=== PATIENT | male | born 1980 | race Caucasian/White ===

== ENCOUNTER 2018-09-12 12:17 | Inpatient (IN) ==
[2018-09-12 14:30] LABS: Basophils % 0.3 %; Eosinophils # 0.2 K/mcL (0.0-0.6); Eosinophils % 1.4 %; Hematocrit 46.1 % (37.5-50.1); Hemoglobin 14.4 g/dL (12.9-16.9); Lymphocytes # 2.7 K/mcL (0.6-4.6); Lymphocytes % 23.2 %; Mean Corpuscular HGB Conc 31.2 g/dL (31.6-35.5); Mean Corpuscular Hemoglobin 25.2 pg (28.0-33.3); Mean Corpuscular Volume 80.7 fL (83.0-100.0); Mean Platelet Volume 9.6 fL (9.4-12.4); Monocytes # 1.1 K/mcL (0.0-1.3); Monocytes % 9.4 %; Neutrophils # 7.5 K/mcL (1.6-8.9); Platelet Count 190 K/mcL (140-400); Red Blood Count 5.71 M/mcL (4.19-5.50); Red Cell Distribution Width 17.2 % (11.5-14.5); Segmented Neutrophils % 64.7 %
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
[2018-09-12 15:10] LABS: BUN/Creatinine Ratio 19 (6-26); Blood Urea Nitrogen 13 mg/dL (6-20); C-Reactive Protein 38 mg/L (Less than 10); Calcium 9.2 mg/dL (8.6-10.3); Carbon Dioxide 29 mEq/L (23-29); Chloride 103 mEq/L (98-107); Glucose 100 mg/dL (70-105); Osmolality,Calculated 288 (280-300); Potassium 4.3 mEq/L (3.5-5.1); Sodium 139 mEq/L (136-145); eGFR For Non-African Americans > 60 (> 60)
[2018-09-12] MEDS ORDERED: Piperacillin/Tazobactam 3.375 GM in 0.9 % Sodium Chloride Mini Bag 100 ML IVPB ONE (15:10)
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
[2018-09-12] MEDS ORDERED: Acetaminophen 325 MG TABLET PO PRN (16:18)
[2018-09-12] MEDS ORDERED: *HR* OxyCODONE Immed Rel 5 MG TABLET PO PRN (16:18)
[2018-09-12] MEDS ORDERED: Naloxone 0.4 MG/ML INJ IVP PRN (16:18)
[2018-09-12] MEDS ORDERED: Dextrose Gel 15 GM/37.5 ML TUBE PO PRN ×2 (16:20)
[2018-09-12] MEDS ORDERED: D5% in Water 1,000 ML IVC PRN (16:20)
[2018-09-12] MEDS ORDERED: *HR* Dextrose 50 % in Water (Syg) 50 ML SYRINGE IVP PRN (16:20)
[2018-09-12 16:39] LABS: Estimated Average Glucose 146 mg/dl; Hemoglobin A1C 6.7 %
[2018-09-12] MEDS ORDERED: Vancomycin 1 EACH in 0.9 % Sodium Chloride 250 ML IVPB SCH (17:00)
[2018-09-12] MEDS: Insulin LISPRO 300 UNITS/3 ML VIAL SQ SCH ×2 (17:18→20:12)
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
[2018-09-12] MEDS: Piperacillin/Tazobactam 3.375 GM in 0.9 % Sodium Chloride Mini Bag 100 ML IVPB SCH (23:45)
[2018-09-12] MEDS: traMADol 50 MG TABLET PO PRN (23:54)
[2018-09-13] MEDS: *HR* Enoxaparin 40 MG/0.4 ML SYRINGE SQ SCH (05:05)
[2018-09-13 05:53] LABS: Hematocrit 44.4 % (37.5-50.1); Hemoglobin 13.8 g/dL (12.9-16.9); Mean Corpuscular HGB Conc 31.1 g/dL (31.6-35.5); Mean Corpuscular Hemoglobin 25.2 pg (28.0-33.3); Mean Platelet Volume 9.9 fL (9.4-12.4); Platelet Count 169 K/mcL (140-400); Red Blood Count 5.48 M/mcL (4.19-5.50); Red Cell Distribution Width 17.9 % (11.5-14.5)
[2018-09-13 06:10] LABS: BUN/Creatinine Ratio 16 (6-26); Blood Urea Nitrogen 12 mg/dL (6-20); Calcium 8.8 mg/dL (8.6-10.3); Carbon Dioxide 30 mEq/L (23-29); Chloride 104 mEq/L (98-107); Glucose 110 mg/dL (70-105); Osmolality,Calculated 286 (280-300); Potassium 4.2 mEq/L (3.5-5.1); Sodium 138 mEq/L (136-145); eGFR For Non-African Americans > 60 (> 60)
[2018-09-13] MEDS: Insulin LISPRO 300 UNITS/3 ML VIAL SQ SCH ×4 (07:58→21:45)
[2018-09-13] MEDS: Lisinopril-HCTZ 20-12.5mg TABLET PO SCH (08:12)
[2018-09-13] MEDS: Piperacillin/Tazobactam 3.375 GM in 0.9 % Sodium Chloride Mini Bag 100 ML IVPB SCH ×2 (08:14→17:20)
--- NOTE | 2018-09-13 10:11 | Internal Med Progress Note ---
<Frandy Loyola - Last Filed: 09/13/18 15:46> Hospitalist Progress Note - Encounter Date of Encounter: 09/13/18 Time of Encounter: 11:00 - Subjective Interval History: Patient examined at the bedside. No acute distress. Continues to be in IV vancomycin and Zosyn for his left leg cellulitis. The left leg has splint with no evidence of exudates. He endorses the wound looks better than yesterday. Denies any numbness or tingling to his extremities. He is scheduled for surgery of his tibial plafond in the beginning of next week. - Exam Vitals: Temp Pulse Resp BP Pulse Ox 97.6 F 80 19 144/80 97 09/13/18 07:32 09/13/18 07:32 09/13/18 07:32 09/13/18 07:32 09/13/18 07:32 Exam: Gen: no acute distress, A&O*3 Heart:RRR, no gallops, murmurs or rubs lungs: To auscultation bilaterally, no rales, wheezing or rhonchi MS: neurovascularly intact, pulses could not be appreciaetd becasue of the splint, ROM WNL, no evidence of compartment syndrome - Assessment and Plan (1) Cellulitis Current Visit: Yes Status: Acute Assessment and Plan: - likely due to allergy to some chemical in the splint on his leg for his cellulitis, or due to weak perfusion secondary to pre-diabetes. Was seen in podiatry clinic at the [facility] 09/03 right with the tibial plafond fracture. Patient currently prediabetic with A1c : 6.7 - on Physical Exam the wound looks warm to touch with no exudates. The color looks better than yesterday. Patient is neurovascularly intact, with no evidence of any compartment syndrome. Requires close monitoring because of his recent fracture - Currently on IV Vanc and Zosyn. - (2) Fracture of tibial plafond Current Visit: Yes Status: Acute Assessment and Plan: - Was diagnosed with the tibial plafond fracture because of fall through the deck on 10:30. - He was placed in a splint at the [facility]. - Scheduled for surgery later this week once the cellulitis infection better,no evidence of any compartment syndrome. (3) Hypertension Current Visit: Yes Status: Chronic Assessment and Plan: - Has a history of hypertension. -We will resume his home Zestoretic and follow blood pressures. Currently BP 135/80 (4) Diabetes Current Visit: Yes Status: Chronic Assessment and Plan: - Patient has a history of borderline diabetes. His A1c was 6.7 on admission. So blood sugar was in 300s when he was admitted but he endorses that he had a meal before he came - On the low-dose sliding scale insulin, most recent glucoses 110. (5) Morbid obesity with BMI of 70 and over, adult Current Visit: Yes Status: Chronic Assessment and Plan: Chronic issue - Time Spent with Patient Total time spent is greater than 50% in coordination of care (as documented) at patient's floor/unit and/or counseling patient: Internal Medicine: Result - Labs CBC & Chem 7: 09/13/18 05:37 09/13/18 05:37 Labs: Short CBC 09/12/18 09/13/18 Range/Units 14:11 05:37 WBC 11.5 H 8.4 (4.3-11.1) K/mcL Hgb 14.4 13.8 (12.9-16.9) g/dL Hct 46.1 44.4 (37.5-50.1) % Plt Count 190 169 (140-400) K/mcL Neutrophils # 7.5 (1.6-8.9) K/mcL BMP 09/12/18 09/13/18 14:11 05:37 Sodium 139 138 Potassium 4.3 4.2 Chloride 103 104 Carbon Dioxide 29 30 H BUN 13 12 Creatinine 0.68 L 0.75 Glucose 100 110 H Calcium 9.2 8.8 Consult Discharge Plan - Plan Referrals: Trevor Ortega, DPM [Partnered Physician] - NONE,PCP [Non-Partnered Physician] - <Haim Frank - Last Filed: 09/13/18 16:10> Hospitalist Progress Note - Encounter Date of Encounter: 09/13/18 - Exam Vitals: Temp Pulse Resp BP Pulse Ox 97.6 F 84 18 157/83 93 09/13/18 15:50 09/13/18 15:50 09/13/18 15:50 09/13/18 15:50 09/13/18 15:50 - Assessment and Plan (1) Cellulitis Current Visit: Yes Status: Acute (2) Fracture of tibial plafond Current Visit: Yes Status: Acute (3) Hypertension Current Visit: Yes Status: Chronic (4) Diabetes Current Visit: Yes Status: Chronic (5) Morbid obesity with BMI of 70 and over, adult Current Visit: Yes Status: Chronic (6) BJORN (obstructive sleep apnea) Current Visit: Yes Status: Chronic Assessment and Plan: Pt states he is to wear bipap at home but does not. - Time Spent with Patient Total time spent is greater than 50% in coordination of care (as documented) at patient's floor/unit and/or counseling patient: Internal Medicine: Result - Labs CBC & Chem 7: 09/13/18 05:37 09/13/18 05:37 Labs: Short CBC 09/13/18 Range/Units 05:37 WBC 8.4 (4.3-11.1) K/mcL Hgb 13.8 (12.9-16.9) g/dL Hct 44.4 (37.5-50.1) % Plt Count 169 (140-400) K/mcL BMP 09/13/18 05:37 Sodium 138 Potassium 4.2 Chloride 104 Carbon Dioxide 30 H BUN 12 Creatinine 0.75 Glucose 110 H Calcium 8.8 - Attending Attestation I examined this patient and my medical decision-making was reviewed with the Resident Physician on 09/13/18. I agree with the documented findings, disposition and treatment plan as described except to the extent set forth below. Mr Rosa is currently admitted for acute cellulitis and fracture of L ankle. He remains moderate to high risk due to potential for worsening clinical status. Mr Rosa is feeling OK. He thinks his foot is better. No fever or chills. No CP or SOB. He is feeling bored. Exam alert Comfortable Mucus membranes dry Heart distant Lungs diminished Abd soft Appears to be less swelling I/P 1. Cellulitis LLE - continue IV abx and monitoring 2. Fracture - per podiatry Further diagnoses and plan as above. <Frandy Loyola - Last Filed: 09/13/18 15:46> (1) Cellulitis Qualifiers: Site of cellulitis: extremity Site of cellulitis of extremity: lower extremity Laterality: left Qualified Code(s): L03.116 - Cellulitis of left lower limb (3) Hypertension Qualifiers: Hypertension type: essential hypertension Qualified Code(s): I10 - Essential (primary) hypertension (4) Diabetes Qualifiers: Diabetes mellitus type: type 2 Diabetes mellitus ferry terminal agent insulin use: without ferry terminal agent use Diabetes mellitus complication status: with hyperglycemia Qualified Code(s): E11.65 - Type 2 diabetes mellitus with hyperglycemia <Haim Frank - Last Filed: 09/13/18 16:10> (1) Cellulitis Qualifiers: Site of cellulitis: extremity Site of cellulitis of extremity: lower extremity Laterality: left Qualified Code(s): L03.116 - Cellulitis of left lower limb (3) Hypertension Qualifiers: Hypertension type: essential hypertension Qualified Code(s): I10 - Essential (primary) hypertension (4) Diabetes Qualifiers: Diabetes mellitus type: type 2 Diabetes mellitus mcfp insulin use: without ferry terminal agent use Diabetes mellitus complication status: with hyperglycemia Qualified Code(s): E11.65 - Type 2 diabetes mellitus with hyperglycemia
[2018-09-13] MEDS: traMADol 50 MG TABLET PO PRN (19:30)
[2018-09-14] MEDS: Piperacillin/Tazobactam 3.375 GM in 0.9 % Sodium Chloride Mini Bag 100 ML IVPB SCH ×3 (00:18→16:55)
[2018-09-14 04:41] LABS: Basophils % 0.3 %; Eosinophils # 0.2 K/mcL (0.0-0.6); Eosinophils % 2.2 %; Hemoglobin 13.9 g/dL (12.9-16.9); Immature Granulocytes % 0.8 % (0-4); Lymphocytes # 1.9 K/mcL (0.6-4.6); Lymphocytes % 19.6 %; Mean Corpuscular HGB Conc 30.9 g/dL (31.6-35.5); Mean Corpuscular Hemoglobin 24.9 pg (28.0-33.3); Mean Corpuscular Volume 80.5 fL (83.0-100.0); Mean Platelet Volume 9.8 fL (9.4-12.4); Monocytes # 0.8 K/mcL (0.0-1.3); Monocytes % 7.7 %; Neutrophils # 6.8 K/mcL (1.6-8.9); Platelet Count 190 K/mcL (140-400); Red Blood Count 5.59 M/mcL (4.19-5.50); Red Cell Distribution Width 16.9 % (11.5-14.5); Segmented Neutrophils % 69.4 %
[2018-09-14 05:01] LABS: BUN/Creatinine Ratio 14 (6-26); Blood Urea Nitrogen 11 mg/dL (6-20); Calcium 8.9 mg/dL (8.6-10.3); Carbon Dioxide 30 mEq/L (23-29); Chloride 103 mEq/L (98-107); Glucose 113 mg/dL (70-105); Osmolality,Calculated 286 (280-300); Potassium 4.1 mEq/L (3.5-5.1); Sodium 138 mEq/L (136-145); eGFR For Non-African Americans > 60 (> 60)
[2018-09-14] MEDS: *HR* Enoxaparin 40 MG/0.4 ML SYRINGE SQ SCH (05:10)
[2018-09-14] MEDS ORDERED: Vancomycin 500 MG in 0.9 % Sodium Chloride Mini Bag 100 ML IVPB ONE (08:00)
[2018-09-14] MEDS: Insulin LISPRO 300 UNITS/3 ML VIAL SQ SCH ×4 (08:04→19:52)
[2018-09-14] MEDS: Lisinopril-HCTZ 20-12.5mg TABLET PO SCH (08:27)
--- NOTE | 2018-09-14 08:34 | Internal Med Progress Note ---
<Haim Frank - Last Filed: 09/14/18 18:34> Hospitalist Progress Note - Encounter Date of Encounter: 09/14/18 - Exam Vitals: Temp Pulse Resp BP Pulse Ox 97.3 F L 99 18 154/91 94 09/14/18 16:33 09/14/18 16:33 09/14/18 16:33 09/14/18 16:33 09/14/18 16:33 - Assessment and Plan (1) Cellulitis Current Visit: Yes Status: Acute (2) Fracture of tibial plafond Current Visit: Yes Status: Acute (3) Hypertension Current Visit: Yes Status: Chronic (4) Diabetes Current Visit: Yes Status: Chronic (5) Morbid obesity with BMI of 70 and over, adult Current Visit: Yes Status: Chronic (6) BJORN (obstructive sleep apnea) Current Visit: Yes Status: Chronic - Time Spent with Patient Total time spent is greater than 50% in coordination of care (as documented) at patient's floor/unit and/or counseling patient: Internal Medicine: Result - Labs CBC & Chem 7: 09/14/18 04:31 09/14/18 04:31 Labs: Short CBC 09/14/18 Range/Units 04:31 WBC 9.8 (4.3-11.1) K/mcL Hgb 13.9 (12.9-16.9) g/dL Hct 45.0 (37.5-50.1) % Plt Count 190 (140-400) K/mcL Neutrophils # 6.8 (1.6-8.9) K/mcL BMP 09/14/18 04:31 Sodium 138 Potassium 4.1 Chloride 103 Carbon Dioxide 30 H BUN 11 Creatinine 0.76 Glucose 113 H Calcium 8.9 Consult Discharge Plan - Plan Referrals: Trevor Ortega, DPM [Partnered Physician] - NONE,PCP [Non-Partnered Physician] - - Attending Attestation I examined this patient and my medical decision-making was reviewed with the Resident Physician on 09/14/18. I agree with the documented findings, disposition and treatment plan as described except to the extent set forth below. Mr Rosa is currently admitted for fracture and cellulitis of L ankle. He remains moderate to high risk due to potential for worsening clinical status. Mr Rosa is resting at this time. No fever or chills. Thinks foot is improving. No GI issues. No CP or SOB. Exam alert comfortable Mucus membranes dry Heart reg No wheeze abd soft I/P 1. Cellulitis - continue abx 2. Fracture per podiatry Further diagnoses and plan as above. <Loyola,Frandy - Last Filed: 09/14/18 19:05> Hospitalist Progress Note - Encounter Date of Encounter: 09/14/18 Time of Encounter: 08:30 - Subjective Interval History: 09/14 No acute events overnight. Endorses no acute distress so continues to be on IV vancomycin and Zosyn for his left leg cellulitis. No evidence of tingling or numbness in the lower extremities. No physical signs of any compartment syndrome. He is scheduled for surgery of his tibial plafond in the beginning of next week. 09/13 Patient examined at the bedside. No acute distress. Continues to be in IV vancomycin and Zosyn for his left leg cellulitis. The left leg has splint with no evidence of exudates. He endorses the wound looks better than yesterday. Denies any numbness or tingling to his extremities. He is scheduled for surgery of his tibial plafond in the beginning of next week. - Exam Vitals: Temp Pulse Resp BP Pulse Ox 97.7 F 84 20 143/81 94 09/14/18 07:35 09/14/18 07:35 09/14/18 07:35 09/14/18 07:35 09/14/18 07:35 Exam: Gen: no acute distress, A&O*3 Heart:RRR, no gallops, murmurs or rubs lungs: Clear to auscultation bilaterally, no rales, wheezing or rhonchi MS: neurovascularly intact, pulses could not be appreciated because of the splint, ROM WNL, no evidence of compartment syndrome - Assessment and Plan (1) Cellulitis Current Visit: Yes Status: Acute Assessment and Plan: - likely due to allergy to some chemical in the splint on his leg for his cellulitis, or due to weak perfusion secondary to pre-diabetes. Was seen in podiatry clinic at the [facility] 09/03 right with the tibial plafond fracture. Patient currently prediabetic with A1c : 6.7 - on Physical Exam the wound looks warm to touch with no exudates. The color looks better than yesterday. Patient is neurovascularly intact, with no evidence of any compartment syndrome. Requires close monitoring because of his recent fracture - Currently on day 3 of IV Vanc and Zosyn. - (2) Fracture of tibial plafond Current Visit: Yes Status: Acute Assessment and Plan: - Was diagnosed with the tibial plafond fracture because of fall through the deck on 10:30. - He was placed in a splint at the [facility]. - Scheduled for surgery later this week once the cellulitis infection better,no evidence of any compartment syndrome. (3) Hypertension Current Visit: Yes Status: Chronic Assessment and Plan: - Has a history of hypertension. -We will resume his home Zestoretic and follow blood pressures. Currently BP 154/91 (4) Diabetes Current Visit: Yes Status: Chronic Assessment and Plan: - Patient has a history of borderline diabetes. His A1c was 6.7 on admission. So blood sugar was in 300s when he was admitted but he endorses that he had a meal before he came - On the low-dose sliding scale insulin, most recent glucoses 113. (5) Morbid obesity with BMI of 70 and over, adult Current Visit: Yes Status: Chronic Assessment and Plan: Chronic issue (6) BJORN (obstructive sleep apnea) Current Visit: Yes Status: Chronic Assessment and Plan: Pt states he is to wear bipap at home but does not. - Time Spent with Patient Total time spent is greater than 50% in coordination of care (as documented) at patient's floor/unit and/or counseling patient: Internal Medicine: Result - Labs CBC & Chem 7: 09/14/18 04:31 09/14/18 04:31 Labs: Short CBC 09/14/18 Range/Units 04:31 WBC 9.8 (4.3-11.1) K/mcL Hgb 13.9 (12.9-16.9) g/dL Hct 45.0 (37.5-50.1) % Plt Count 190 (140-400) K/mcL Neutrophils # 6.8 (1.6-8.9) K/mcL BMP 09/14/18 04:31 Sodium 138 Potassium 4.1 Chloride 103 Carbon Dioxide 30 H BUN 11 Creatinine 0.76 Glucose 113 H Calcium 8.9 <Haim Frank - Last Filed: 09/14/18 18:34> (1) Cellulitis Qualifiers: Site of cellulitis: extremity Site of cellulitis of extremity: lower extremity Laterality: left Qualified Code(s): L03.116 - Cellulitis of left lower limb (3) Hypertension Qualifiers: Hypertension type: essential hypertension Qualified Code(s): I10 - Essential (primary) hypertension (4) Diabetes Qualifiers: Diabetes mellitus type: type 2 Diabetes mellitus fpc insulin use: without superintendent marine oil terminal use Diabetes mellitus complication status: with hyperglycemia Qualified Code(s): E11.65 - Type 2 diabetes mellitus with hyperglycemia <Frandy Loyola - Last Filed: 09/14/18 19:05> (1) Cellulitis Qualifiers: Site of cellulitis: extremity Site of cellulitis of extremity: lower extremity Laterality: left Qualified Code(s): L03.116 - Cellulitis of left lower limb (3) Hypertension Qualifiers: Hypertension type: essential hypertension Qualified Code(s): I10 - Essential (primary) hypertension (4) Diabetes Qualifiers: Diabetes mellitus type: type 2 Diabetes mellitus superintendent marine oil terminal insulin use: without superintendent marine oil terminal use Diabetes mellitus complication status: with hyperglycemia Qualified Code(s): E11.65 - Type 2 diabetes mellitus with hyperglycemia
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
[2018-09-15] MEDS: Piperacillin/Tazobactam 3.375 GM in 0.9 % Sodium Chloride Mini Bag 100 ML IVPB SCH ×3 (00:45→16:13)
[2018-09-15] MEDS: traMADol 50 MG TABLET PO PRN (04:02)
[2018-09-15] MEDS: *HR* Enoxaparin 40 MG/0.4 ML SYRINGE SQ SCH (04:54)
[2018-09-15 06:20] LABS: Basophils % 0.4 %; Eosinophils # 0.2 K/mcL (0.0-0.6); Eosinophils % 2.2 %; Hematocrit 44.9 % (37.5-50.1); Hemoglobin 13.9 g/dL (12.9-16.9); Immature Granulocytes % 0.6 % (0-4); Lymphocytes # 2.7 K/mcL (0.6-4.6); Lymphocytes % 27.4 %; Mean Corpuscular Volume 80.6 fL (83.0-100.0); Mean Platelet Volume 9.5 fL (9.4-12.4); Monocytes # 0.9 K/mcL (0.0-1.3); Monocytes % 8.8 %; Neutrophils # 6.1 K/mcL (1.6-8.9); Platelet Count 192 K/mcL (140-400); Red Blood Count 5.57 M/mcL (4.19-5.50); Red Cell Distribution Width 17.3 % (11.5-14.5); Segmented Neutrophils % 60.6 %
[2018-09-15 06:38] LABS: BUN/Creatinine Ratio 17 (6-26); Blood Urea Nitrogen 13 mg/dL (6-20); Calcium 9.3 mg/dL (8.6-10.3); Carbon Dioxide 28 mEq/L (23-29); Chloride 104 mEq/L (98-107); Glucose 110 mg/dL (70-105); Osmolality,Calculated 289 (280-300); Potassium 4.1 mEq/L (3.5-5.1); Sodium 139 mEq/L (136-145); eGFR For Non-African Americans > 60 (> 60)
[2018-09-15] MEDS: Insulin LISPRO 300 UNITS/3 ML VIAL SQ SCH ×4 (08:07→20:38)
[2018-09-15] MEDS: Lisinopril-HCTZ 20-12.5mg TABLET PO SCH (09:10)
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
[2018-09-16] MEDS: Piperacillin/Tazobactam 3.375 GM in 0.9 % Sodium Chloride Mini Bag 100 ML IVPB SCH ×3 (00:10→16:10)
[2018-09-16] MEDS: *HR* Enoxaparin 40 MG/0.4 ML SYRINGE SQ SCH (05:35)
[2018-09-16] MEDS: Insulin LISPRO 300 UNITS/3 ML VIAL SQ SCH ×4 (07:48→22:33)
[2018-09-16] MEDS: Lisinopril-HCTZ 20-12.5mg TABLET PO SCH (08:31)
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
[2018-09-16] MEDS ORDERED: Lidocaine 1% 20 ML MDV ONE (14:30)
[2018-09-16] MEDS ORDERED: Lidocaine -MPF 2% 2 ML VIAL ONE (14:31)
[2018-09-16] MEDS ORDERED: Ondansetron 4 MG/2 ML VIAL ONE (14:31)
[2018-09-16] MEDS ORDERED: *HR* FentaNYL (PF) 100 MCG/2 ML VIAL ONE ×3 (14:31→15:50)
[2018-09-16] MEDS ORDERED: *HR* Propofol 200 MG/20 ML VIAL IVP ONE (14:31)
[2018-09-16] MEDS ORDERED: Dexamethasone 4 MG/ML VIAL ONE (14:31)
[2018-09-16] MEDS ORDERED: *HR* Rocuronium Bromide 50 MG/5 ML VIAL ONE (15:04)
[2018-09-16] MEDS ORDERED: *HR* Promethazine 25 MG/ML VIAL IVP PRN ×2 (15:32→19:32)
[2018-09-16] MEDS ORDERED: Ondansetron 4 MG/2 ML VIAL IVP ONE ×2 (15:32→19:32)
[2018-09-16] MEDS ORDERED: *HR* Labetalol 20 MG/4 ML SYRINGE IVP PRN ×2 (15:32→19:32)
[2018-09-16] MEDS ORDERED: *HR* OxyCODONE/APAP 5/325 TABLET PO PRN ×2 (15:32→19:32)
[2018-09-16] MEDS ORDERED: *HR* Succinylcholine 200 MG/10 ML VIAL IVP ONE (15:42)
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
[2018-09-16] MEDS: *HR* HYDROmorphone (PF) 1 MG/ML SYRINGE IVP PRN ×2 (18:17→18:22)
--- NOTE | 2018-09-16 18:39 | Anesthesia Evaluation Post Op ---
Date of Encounter: 09/16/18 Time of Encounter: 18:39 - Vital Signs Vital Signs: Vital Signs/O2 Sat, Most Current Temp Pulse Resp BP Pulse Ox 97.9 F 93 24 143/92 92 09/16/18 18:11 09/16/18 18:26 09/16/18 18:26 09/16/18 18:26 09/16/18 18:26 - Lungs Lungs: Clear Ascult./Percussion - Airway Airway: Non-obstructed - Cardiovascular Regular Rate - Mental Status Mental Status: Alert & Oriented, Answers Appropriately - Pain Pain Scale: 0 Pain Scale used: Numeric (1 - 10) - Nausea Vomiting Nausea Vomiting: Not Present - Hydration Hydration: Tolerates oral liquids, Has not voided - Discharge PostOp Status: Transfer Patient to floor
[2018-09-16] MEDS ORDERED: Naloxone 0.4 MG/ML INJ IVP PRN (19:32)
[2018-09-16] MEDS ORDERED: Dextrose Gel 15 GM/37.5 ML TUBE PO PRN ×2 (19:32)
[2018-09-16] MEDS ORDERED: *HR* Dextrose 50 % in Water (Syg) 50 ML SYRINGE IVP PRN (19:32)
[2018-09-16] MEDS ORDERED: traMADol 50 MG TABLET PO PRN (19:32)
[2018-09-16] MEDS ORDERED: Acetaminophen 325 MG TABLET PO PRN (19:32)
[2018-09-16] MEDS ORDERED: D5% in Water 1,000 ML IVC PRN (19:32)
[2018-09-16] MEDS ORDERED: *HR* HYDROmorphone (PF) 1 MG/ML SYRINGE IVP PRN (19:32)
[2018-09-17] MEDS: Piperacillin/Tazobactam 3.375 GM in 0.9 % Sodium Chloride Mini Bag 100 ML IVPB SCH ×3 (01:16→16:45)
[2018-09-17] MEDS: *HR* Enoxaparin 40 MG/0.4 ML SYRINGE SQ SCH (06:02)
[2018-09-17] MEDS: Insulin LISPRO 300 UNITS/3 ML VIAL SQ SCH ×4 (07:30→20:59)
[2018-09-17 08:14] LABS: Basophils % 0.2 %; Eosinophils % 0.1 %; Hematocrit 46.4 % (37.5-50.1); Hemoglobin 14.2 g/dL (12.9-16.9); Immature Granulocytes % 0.8 % (0-4); Lymphocytes # 1.9 K/mcL (0.6-4.6); Lymphocytes % 15.6 %; Mean Corpuscular HGB Conc 30.6 g/dL (31.6-35.5); Mean Corpuscular Hemoglobin 25.2 pg (28.0-33.3); Mean Corpuscular Volume 82.3 fL (83.0-100.0); Mean Platelet Volume 9.6 fL (9.4-12.4); Monocytes % 8.3 %; Neutrophils # 9.1 K/mcL (1.6-8.9); Platelet Count 214 K/mcL (140-400); Red Blood Count 5.64 M/mcL (4.19-5.50); Red Cell Distribution Width 17.4 % (11.5-14.5)
[2018-09-17] MEDS: Lisinopril-HCTZ 20-12.5mg TABLET PO SCH (08:59)
[2018-09-17] MEDS: *HR* OxyCODONE Immed Rel 5 MG TABLET PO PRN ×2 (09:01→15:41)
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
[2018-09-17] MEDS: cephALEXin 500 MG CAPSULE PO SCH (20:59)
[2018-09-18] MEDS: *HR* OxyCODONE Immed Rel 5 MG TABLET PO PRN ×2 (01:28→20:56)
[2018-09-18 04:13] LABS: Basophils # 0.1 K/mcL (0.0-0.2); Basophils % 0.5 %; Eosinophils # 0.1 K/mcL (0.0-0.6); Eosinophils % 1.3 %; Hematocrit 45.3 % (37.5-50.1); Hemoglobin 13.6 g/dL (12.9-16.9); Immature Granulocytes % 0.4 % (0-4); Lymphocytes # 2.4 K/mcL (0.6-4.6); Lymphocytes % 23.5 %; Mean Corpuscular Hemoglobin 24.9 pg (28.0-33.3); Mean Platelet Volume 9.8 fL (9.4-12.4); Monocytes # 1.1 K/mcL (0.0-1.3); Monocytes % 10.7 %; Neutrophils # 6.6 K/mcL (1.6-8.9); Platelet Count 182 K/mcL (140-400); Red Blood Count 5.46 M/mcL (4.19-5.50); Red Cell Distribution Width 17.7 % (11.5-14.5); Segmented Neutrophils % 63.6 %
[2018-09-18 04:31] LABS: eGFR For Non-African Americans > 60 (> 60)
[2018-09-18 04:32] LABS: BUN/Creatinine Ratio 15 (6-26); Blood Urea Nitrogen 15 mg/dL (6-20); Calcium 8.9 mg/dL (8.6-10.3); Carbon Dioxide 33 mEq/L (23-29); Chloride 103 mEq/L (98-107); Glucose 115 mg/dL (70-105); Osmolality,Calculated 292 (280-300); Potassium 4.3 mEq/L (3.5-5.1); Sodium 140 mEq/L (136-145); eGFR For Non-African Americans > 60 (> 60)
[2018-09-18] MEDS: *HR* Enoxaparin 40 MG/0.4 ML SYRINGE SQ SCH (06:03)
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
[2018-09-18] MEDS: Insulin LISPRO 300 UNITS/3 ML VIAL SQ SCH ×5 (08:32→22:28)
[2018-09-18] MEDS: Lisinopril-HCTZ 20-12.5mg TABLET PO SCH (09:12)
[2018-09-18] MEDS: cephALEXin 500 MG CAPSULE PO SCH ×4 (09:12→22:18)
--- NOTE | 2018-09-18 14:11 | Podiatry Progress Note ---
Date of Encounter: 09/19/18 Time of Encounter: 14:00 - Assessment and Plan (1) Cellulitis Current Visit: Yes Status: Acute Does not appear to be worsening post operatively with IV ATB. No redness above or below splint. Will re-assess Saturday with dressing change. Qualifiers: Site of cellulitis: extremity Site of cellulitis of extremity: lower extremity Laterality: left Qualified Code(s): L03.116 - Cellulitis of left lower limb (2) Fracture of tibial plafond Current Visit: Yes Status: Acute Patient with open reduction with internal fixation tibial plafond fracture, left ankle, on 09/16/17. Toes to left foot warm to touch, CFT <3 seconds, no calf pain. No redness or streaking above or below splint. No strikethrough noted. Splint in place. Patient to remain NWB of LLE. Do not get dressing wet. Patient on IV ATB, currently being managed by primary team. X-ray ordered for AM. Recommend -Can D/C home on oral ATB after AM dressing change and Xray -Follow up outpatient with Dr. Sauceda 1 week post discharge. Subjective Principal diagnosis: Left ankle fracture Interval history: Patient awake in bed. Denies any overnight complications. Alert and oriented x 3. Reports pain to LLE. Reports he believes the splint is causing him pain to the back of the leg. Denies calf pain otherwise. Denies fevers, nausea, vomiting, diarrhea, and chills. student services director and physician at bedside. No other complaints/concerns at this time. Objective - Vital Signs Vital Signs: Vital Signs Temp Pulse Resp BP Pulse Ox 09/18/18 10:46 98.8 F 87 16 174/79 97 09/18/18 06:58 98 F 79 16 157/74 98 09/18/18 04:00 97.9 F 99 18 144/84 91 09/17/18 23:18 98.6 F 84 20 144/75 94 09/17/18 19:24 98.1 F 95 18 133/74 91 09/17/18 16:34 97.8 F 82 16 146/77 90 Intake and Output 09/17/18 09/18/18 09/18/18 23:59 07:59 15:59 Intake Total 240 / 240 400 / 400 Balance 240 / 240 400 / 400 Intake: Oral 240 / 240 400 / 400 Other: Meal Dinner Percent of Meal Consumed 100% Weight 224.53 kg Blood Glucose* 105 93 98 Patient Weight 09/18/18 23:59 Weight 224.53 kg - Exam Exam: Constitiutional: Alert and oriented x 3. Vascular: patient currently in splint, CFT <3 seconds to LLE, digits warm to touch LLE, No calf pain with squeeze, no streaking or edema above splint or below. Neurologic: Diminished sensation to touch Dermatologic: Splint in place, no strike through noted. Musculoskeletal: 5/5 muscle strength and normal tone RLE, patient to remain NWB LLE. - Lab Result Diagrams: 09/18/18 03:57 09/18/18 03:57 Labs: Abnormal lab results MCH 24.9 pg (28.0-33.3) L 09/18/18 03:57 MCHC 30.0 g/dL (31.6-35.5) L 09/18/18 03:57 RDW 17.7 % (11.5-14.5) H 09/18/18 03:57 ESR 58 mm/hr (0-10) H 09/12/18 14:11 Carbon Dioxide 33 mEq/L (23-29) H 09/18/18 03:57 Glucose 115 mg/dL (70-105) H 09/18/18 03:57 POC Glucose 105 mg/dL (70-99) H 09/17/18 19:35 Hemoglobin A1c 6.7 % (-5.6) H 09/12/18 14:11 C-Reactive Protein 38 mg/L (Less than 10) H 09/12/18 14:11 Vancomycin Trough 11 mcg/mL (5-10) H 09/15/18 15:50 Microbiology, Last 48 Hours 09/12/18 14:11 Blood Culture - Final Peripheral Venipuncture No growth. Final report. 09/12/18 14:11 Blood Culture - Final Peripheral Venipuncture No growth. Final report. Consult Discharge Plan - Plan Additional Instructions: Follow with Dr. Sauceda Saturday after D/C. Follow up in outpatient clinic. Referrals: Trevor Ortega, DPM [Partnered Physician] - NONE,PCP [Non-Partnered Physician] - Prescriptions: OxyCODONE Immed Rel [Roxicodone 5 MG] 10 mg PO Q12HR PRN 5 Days #10 tablet PRN Reason: Severe Pain cephALEXin [Keflex] 500 mg PO QID #32 capsule Enoxaparin [Lovenox] 30 mg SQ Q12H #60 syringe glyBURIDE [GlyBURIDE] 5 mg PO DAILY #30 tablet
[2018-09-18] MEDS ORDERED: Aminoglycoside Consult 1 EACH MC ONE (16:14)
[2018-09-19] MEDS: *HR* Enoxaparin 40 MG/0.4 ML SYRINGE SQ SCH (06:29)
[2018-09-19] MEDS: Insulin LISPRO 300 UNITS/3 ML VIAL SQ SCH ×2 (08:25→12:43)
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
[2018-09-19] MEDS: cephALEXin 500 MG CAPSULE PO SCH ×2 (09:48→13:35)
[2018-09-19] MEDS: Lisinopril-HCTZ 20-12.5mg TABLET PO SCH (09:48)
--- NOTE | 2018-09-19 10:05 | Podiatry Progress Note ---
Date of Encounter: 09/19/18 Time of Encounter: 07:45 - Assessment and Plan (1) Cellulitis Current Visit: Yes Status: Acute Much improved. Minimal erythema and edema noted. Qualifiers: Site of cellulitis: extremity Site of cellulitis of extremity: lower extremity Laterality: left Qualified Code(s): L03.116 - Cellulitis of left lower limb (2) Fracture of tibial plafond Current Visit: Yes Status: Acute Patient with open reduction with internal fixation tibial plafond fracture, left ankle, on 09/16/17. Toes to left foot warm to touch, CFT <3 seconds, no calf pain. No redness or streaking noted. Removed splint. Incisions well approximated. Sutures in tact. No signs of dehiscence noted. No drainage noted. Covered incisions with Adaptic, 4 x 4 gauze, Kerlix. Covered with cast padding, splinting, and Ramon bandage. X-ray completed and reviewed this am. NWB LLE Do not remove splint/dressing. Will change in office. Recommend -Can D/C home today. -Lovenox 40mg for 30 days postoperatively. -Keflex for 1 week. -Will need wheelchair to keep patient NWB. -Follow up with Dr. Sauceda Saturday. Subjective Principal diagnosis: Left ankle fracture Interval history: Patient awake in bed. Denies any overnight complications. Alert and oriented x 3.Denies calf pain otherwise. Denies fevers, nausea, vomiting, diarrhea, and chills. No other complaints/concerns at this time. Patient states he is ready to go home. States he was told he would have to go home on oxygen. Objective - Vital Signs Vital Signs: Vital Signs Temp Pulse Resp BP Pulse Ox 09/19/18 06:57 97.4 F L 79 20 161/83 93 09/18/18 22:33 98.8 F 71 18 136/84 92 09/18/18 18:14 97.9 F 86 18 149/80 91 09/18/18 15:28 98.1 F 102 17 141/83 91 09/18/18 10:46 98.8 F 87 16 174/79 97 Intake and Output 09/18/18 09/19/18 09/19/18 23:59 07:59 15:59 Intake Total 500 / 500 Balance 500 / 500 Intake: Oral 500 / 500 Other: # Voids 1 Weight 224.55 kg 226.57 kg Blood Glucose* 146 111 Patient Weight 09/19/18 23:59 Weight 226.57 kg - Exam Exam: Constitiutional: Alert and oriented x 3. Vascular: patient currently in splint, CFT <3 seconds to LLE, digits warm to touch LLE, No calf pain with squeeze, no streaking or edema above splint or below. Neurologic: Diminished sensation to touch Dermatologic: Splint in place, no strike through noted. Musculoskeletal: 5/5 muscle strength and normal tone RLE, patient to remain NWB LLE. - Lab Result Diagrams: 09/18/18 03:57 09/18/18 03:57 Labs: Abnormal lab results MCH 24.9 pg (28.0-33.3) L 09/18/18 03:57 MCHC 30.0 g/dL (31.6-35.5) L 09/18/18 03:57 RDW 17.7 % (11.5-14.5) H 09/18/18 03:57 ESR 58 mm/hr (0-10) H 09/12/18 14:11 Carbon Dioxide 33 mEq/L (23-29) H 09/18/18 03:57 Glucose 115 mg/dL (70-105) H 09/18/18 03:57 POC Glucose 146 mg/dL (70-99) H 09/18/18 19:41 Hemoglobin A1c 6.7 % (-5.6) H 09/12/18 14:11 C-Reactive Protein 38 mg/L (Less than 10) H 09/12/18 14:11 Vancomycin Trough 11 mcg/mL (5-10) H 09/15/18 15:50 Microbiology, Last 48 Hours 09/12/18 14:11 Blood Culture - Final Peripheral Venipuncture No growth. Final report. 09/12/18 14:11 Blood Culture - Final Peripheral Venipuncture No growth. Final report. Consult Discharge Plan - Plan Additional Instructions: Follow with Dr. Sauceda Saturday after D/C. Follow up in outpatient clinic. Referrals: Treovr Ortega P, DPM [Partnered Physician] - NONE,PCP [Non-Partnered Physician] - Prescriptions: OxyCODONE Immed Rel [Roxicodone 5 MG] 10 mg PO Q12HR PRN 5 Days #10 tablet PRN Reason: Severe Pain cephALEXin [Keflex] 500 mg PO QID #32 capsule Enoxaparin [Lovenox] 30 mg SQ Q12H #60 syringe glyBURIDE [GlyBURIDE] 5 mg PO DAILY #30 tablet
[2018-09-19 15:58] VITALS: BP 153/76
== END 2018-09-19 16:15 | disposition home health service (06) | DRG 313 ==
LOC: EMEROOARM 12:17 → SUATTDRO 15:38 → 3NENU 15:38
PROVIDERS: ADMIT Internal Medicine; ATTEND Internal Medicine